=== PATIENT | female | born 1965 | race Caucasian/White ===

== ENCOUNTER → 2019-03-22 | Outpatient (CLI) | payer OTHER ==
[~2019-03-22] MED LIST: AMILORIDE HCL-1 EACH PO; CLARITIN-D 12 H1 TA2 PO; MULTIVITAMINS PO; PERCOCET 5-3251 EACH PO; ZOFRAN4 MG PO
--- NOTE | 2019-03-31 23:50 | SLEEP ---
[address] [address] SLEEP STUDY REPORT Name: FLOYDSAADIA L Room: [facility]#: [id number] Admission: 03/22/19 Attend Phys: Lily Quintana DO Discharge: Date of : 63 Report #: [id number] THIS REPORT FOR: //name// CC: Lily Quintana DO This study has been reviewed in its entirety by a board certified sleep specialist DATE OF SERVICE: 03/23/2019 HOME SLEEP STUDY REFERRING PHYSICIAN: Lily Quintana DO The patient is 53 years old who weighs 205 pounds with a BMI of 38.7. The patient's Sasser score was 1. The patient underwent home sleep study performed by [facility]. Total recording time was 519 minutes. During the night study, the patient had 32 obstructive apneas, 2 central apneas, no mixed apneas and 219 hypopneas. The patient's apnea-hypopnea index was 29.2 per hour. No supine sleep was recorded. Nocturnal oximetry study revealed an average oxygen saturation of 92% with the lowest of 84%. 31 minutes were spent in oxygen saturation less than 90%. Mean heart rate 60 beats per minute with a maximum 85 beats per minute. IMPRESSION: 1. Severe sleep apnea-hypopnea syndrome at an AHI of 29.2 per hour. 2. Nocturnal hypoxia secondary to obstructive sleep apnea. RECOMMENDATION: 1. The patient would benefit from treatment of sleep apnea with CPAP. This can be done as in-lab CPAP titration versus home auto-titration. 2. Once this patient is optimally treated with CPAP, then follow up in 4-6 weeks to assess compliance with CPAP and to document clinical improvement. 3. Weight loss is strongly advised. 4. Avoid [employer] depressants. 5. Cautioned regarding driving or operating heavy machinery until symptoms of sleep apnea resolve with the use of CPAP. <ELECTRONICALLY SIGNED> By: Jeff Heller MD 03/31/19 [id number] Jelani Heller MD /nt
== END ==
LOC: M.SLEEPLAB 09:54
DX: G47.33 Obstructive sleep apnea (adult) (pediatric) (principal); G47.34 Idiopathic sleep related nonobstructive alveolar hypoventilation